=== PATIENT | female | born 1995 | race Two or more races ===

== ENCOUNTER 2020-08-04 19:43 | Emergency (ER) | payer MEDICAID, OTHER ==
[~2020-08-04] VITALS: Ht 160 cm; Wt 67.6 kg
[2020-08-04 20:41] VITALS: BP 111/63
== END 2020-08-04 20:55 | disposition home or self-care (01) ==
LOC: ER 19:43
DX: R51.9 Headache, unspecified (principal); F41.9 Anxiety disorder, unspecified
CPT/HCPCS: 70450

== ENCOUNTER 2022-12-25 09:55 | Emergency (ER) | payer MEDICAID, OTHER ==
[~2022-12-25] VITALS: Ht 160 cm; Wt 77.6 kg
[2022-12-25 13:28] VITALS: BP 126/75
== END 2022-12-25 13:31 | disposition left against medical advice (07) ==
LOC: ER 09:55
DX: M54.2 Cervicalgia (principal); Z53.21 Procedure and treatment not carried out due to patient leaving prior to being seen by health care provider